=== PATIENT | male | born 1940 | race Caucasian/White ===

== ENCOUNTER → 2020-03-29 | Outpatient (CLI) | payer MEDICAID, MEDICARE ==
[~2020-03-29] MED LIST: ACCU1TAB2; ALBU83IN NEB; AMIT25TA2; AMLO1TAB25 PO; AMOX875T2 PO; ASPI81TA63; ATRO1SOL13; ATROVENT0.02%; BREO1INH3 INH; CADUET; CALC600T10; CALCTAB22; COLA100C2; D31000TA2 PO; DARV100T; DEPA500T; DOCU100C16 PO; DOXY100C PO; ELIQ5TAB PO; ESCI10TA2 PO; FISH OIL ORAL; FLOM0.4C39 PO; GABA600T3; GLIP5TAB20 PO; GLUC500T; HYDR50TA7; JANU50TA4 PO; LISI-538 PO; LISI10TA4 PO; LOPR50TA; LORA-674 PO; MOTR200T4; NEUR600T; PREV30TA; QUET1TAB7 PO; ROSI2TA; ROSU20TA5 PO; SKEL800T5; SUCR1TAB56; TRAM50TA2; VICO5TAB; ZETI10TA
--- NOTE | 2020-03-29 23:12 | REP ---
RENAL ULTRASOUND: REASON: Urinary retention. There are no priors for comparison. FINDINGS: Multiple ultrasonographic images of the right kidney show the right kidney to measure 10.9 x 5 x 5.8 cm with an RI of 0.61. The renal cortical echotexture is unremarkable. There are no masses. There is good corticomedullary differentiation. There is no hydronephrosis. There are no perinephric fluid collections. Multiple ultrasonographic images of the left kidney show the left kidney to measure 11.5 x 4.2 x 6.1 cm. The left renal RI was not obtained. The renal cortical echotexture is unremarkable. There are no masses. There is good corticomedullary differentiation. There is no hydronephrosis. There are no perinephric fluid collections. Images of the urinary bladder obtained solely for the purpose of assessing for uro-jet phenomena, which was not seen at either the right or left ureterovesical junction. IMPRESSION: Unremarkable renal ultrasonography.
== END ==
LOC: M PLAIMG 11:10
PROVIDERS: ATTEND Student in an Organized Health Care Education/Training Program
DX: R33.9 Retention of urine, unspecified (principal)

== ENCOUNTER → 2020-05-03 | Emergency (ER) | payer MEDICARE ==
[~2020-05-03] MED LIST changes: +APIXABAN 5 MG TAB (ELIQUIS) ONE; +GI COCKTAIL 50ML BTL(HYOSCYAMINE/MAALOX/LIDOCAINE VISCOUS)(1:3:1) ONE; +ISOVUE-370 76% 100ML VIAL ONE
--- NOTE | 2020-06-01 11:49 | ECGEPIP ---
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
[2020-06-09 11:15] LABS: BASO % 0.3 % (0.0-1.0); EOS # 0.3 10^3/uL (0.0-0.5); EOS % 4.6 % (0.0-3.0); HEMATOCRIT 38.7 % (42.0-52.0); HEMOGLOBIN 12.7 g/dl (13.5-17.5); LYMPH # 1.4 10^3/uL (1.5-5.0); LYMPH % 19.1 % (24.0-44.0); MEAN CORPUSCULAR HEMOGLOBIN 31.4 pg (27.0-33.0); MEAN CORPUSCULAR HGB CONC 32.8 g/dl (32.0-36.5); MEAN CORPUSCULAR VOLUME 95.8 fl (80.0-96.0); MONO # 0.8 10^3/uL (0.0-0.8); MONO % 10.8 % (0.0-5.0); NEUTROPHILS # 4.8 10^3/uL (1.5-8.5); NEUTROPHILS % 64.8 % (36.0-66.0); PLATELET COUNT, AUTOMATED 204 10^3/uL (150-450); RED BLOOD COUNT 4.04 10^6/uL (4.30-6.10); WHITE BLOOD COUNT 7.4 10^3/uL (4.0-10.0)
[2020-06-09 11:28] LABS: INR 1.01; PARTIAL THROMBOPLASTIN TIME 29.4 SECONDS (24.2-38.5); PROTHROMBIN TIME 13.5 SECONDS (12.5-14.3)
[2020-06-10 09:23] LABS: BLOOD UREA NITROGEN 27 MG/DL (7-18); CALCIUM LEVEL 8.3 MG/DL (8.8-10.2); CARBON DIOXIDE LEVEL 27 MEQ/L (21-32); CHLORIDE LEVEL 107 MEQ/L (98-107); CK-MB VALUE MASS 1.2 NG/ML (<3.6); CPK CREATINE PHOSPHOKINASE 50 U/L (39-308); CREATININE FOR GFR 1.34 MG/DL (0.70-1.30); GLOMERULAR FILTRATION RATE 54.5 (>35); GLUCOSE, FASTING 204 MG/DL (70-100); NT-PRO BNP 318 PG/ML (<450); POTASSIUM SERUM 4.5 MEQ/L (3.5-5.1); SODIUM LEVEL 138 MEQ/L (136-145); TROPONIN I < 0.02 NG/ML (< 0.10)
== END | disposition home or self-care (01) ==
LOC: M ED 20:28
DX: I82.432 Acute embolism and thrombosis of left popliteal vein (principal); I51.7 Cardiomegaly; I31.3 Pericardial effusion (noninflammatory); I28.8 Other diseases of pulmonary vessels; R94.31 Abnormal electrocardiogram [ECG] [EKG]; I25.10 Atherosclerotic heart disease of native coronary artery without angina pectoris; E11.9 Type 2 diabetes mellitus without complications; I10 Essential (primary) hypertension; E78.5 Hyperlipidemia, unspecified; K21.9 Gastro-esophageal reflux disease without esophagitis; J44.9 Chronic obstructive pulmonary disease, unspecified; F03.90 Unspecified dementia, unspecified severity, without behavioral disturbance, psychotic disturbance, mood disturbance, and anxiety; Z87.891 Personal history of nicotine dependence; Z79.82 Long term (current) use of aspirin; Z79.84 Long term (current) use of oral hypoglycemic drugs; Z79.899 Other long term (current) drug therapy; Z88.8 Allergy status to other drugs, medicaments and biological substances
CPT/HCPCS: 71046; 71275; 80048; 82550; 82553; 83880; 84484; 85025; 85610; 85730; 93005; 93970; 99285; Q9967

== ENCOUNTER 2020-06-09 17:41 | Inpatient (IN) | payer MEDICARE ==
[~2020-06-09] VITALS: Ht 172.7 cm; Wt 95.5 kg
[~2020-06-09 17:41] MED LIST changes: -ALBU83IN NEB; -AMLO1TAB25 PO; -AMOX875T2 PO; -APIXABAN 5 MG TAB (ELIQUIS) ONE; -BREO1INH3 INH; -D31000TA2 PO; -DOCU100C16 PO; -DOXY100C PO; -ELIQ5TAB PO; -ESCI10TA2 PO; -FLOM0.4C39 PO; -GI COCKTAIL 50ML BTL(HYOSCYAMINE/MAALOX/LIDOCAINE VISCOUS)(1:3:1) ONE; -GLIP5TAB20 PO; -ISOVUE-370 76% 100ML VIAL ONE; -JANU50TA4 PO; -LISI-538 PO; -LISI10TA4 PO; -LORA-674 PO; -QUET1TAB7 PO; -ROSU20TA5 PO
--- NOTE | 2020-06-09 18:24 | REPVR ---
PROCEDURE INFORMATION: Exam: CT Cervical Spine Without Contrast Exam date and time: 06/09/2020 6:07 PM Age: 79 years old Clinical indication: Injury or trauma; Fall; Initial encounter; Blunt trauma; Additional info: Head trauma arrives in collar TECHNIQUE: Imaging protocol: Computed tomography images of the cervical spine without contrast. Radiation optimization: All CT scans at this facility use at least one of these dose optimization techniques: automated exposure control; mA and/or kV adjustment per patient size (includes targeted exams where dose is matched to clinical indication); or iterative reconstruction. COMPARISON: No relevant prior studies available. FINDINGS: Vertebrae: No traumatic segmental malalignment of cervical spine or craniocervical junction. Vertebral body height is maintained at all levels. No acute fracture. No destructive or blastic cervical spine osseous lesion. Developmental non-fusion posterior neural arch of C1. Disc spaces: Intervertebral disc height is decreased at multiple levels, with typical degenerative pattern and associated endplate, articular pillar and uncovertebral spurs. Prevertebral Space: Prevertebral soft tissues demonstrate no asymmetry. Lungs: No concerning abnormality of the imaged lung apices. IMPRESSION: 1. No acute fracture or traumatic subluxation of the cervical spine. 2. Multilevel degenerative disc and articular pillar arthropathy. Electronically signed by: Osvaldo Villanueva On 06/09/2020 18:24:11 PM
--- NOTE | 2020-06-09 18:25 | REPVR ---
PROCEDURE INFORMATION: Exam: CT Head Without Contrast Exam date and time: 06/09/2020 6:07 PM Age: 79 years old Clinical indication: Injury or trauma; Fall; Initial encounter; Blunt trauma (contusions or hematomas); Consciousness not specified; Additional info: Head trauma on thinners TECHNIQUE: Imaging protocol: Computed tomography of the head without contrast. Radiation optimization: All CT scans at this facility use at least one of these dose optimization techniques: automated exposure control; mA and/or kV adjustment per patient size (includes targeted exams where dose is matched to clinical indication); or iterative reconstruction. COMPARISON: No relevant prior studies available. FINDINGS: Brain: Mild decreased attenuation in periventricular/centrum semiovale white matter. No intracranial mass, mass effect or midline shift. No acute intracranial hemorrhage. No focal effacement of cortical sulci to indicate acute cortical infarct. Ventricles: Ventricles, cisterns and sulci are symmetrically prominent. Bones/joints: No calvarial fracture or destructive process. Paranasal sinuses: Imaged paranasal sinuses are clear. Mastoid air cells: Mastoid air cells are normally aerated. Orbits: Imaged orbits are unremarkable. Soft tissues: Left posterior vertex extracranial scalp swelling. IMPRESSION: Left posterior vertex extracranial scalp swelling. No underlying acute intracranial abnormality. Electronically signed by: Osvaldo Villanueva On 06/09/2020 18:25:37 PM
[2020-06-09 18:31] LABS: BASO % 0.3 % (0.0-1.0); EOS % 0.3 % (0.0-3.0); HEMATOCRIT 43.7 % (42.0-52.0); HEMOGLOBIN 14.3 g/dl (13.5-17.5); LYMPH # 1.1 10^3/uL (1.5-5.0); LYMPH % 9.4 % (24.0-44.0); MEAN CORPUSCULAR HGB CONC 32.7 g/dl (32.0-36.5); MEAN CORPUSCULAR VOLUME 94.8 fl (80.0-96.0); MONO # 0.7 10^3/uL (0.0-0.8); MONO % 5.9 % (0.0-5.0); NEUTROPHILS # 9.9 10^3/uL (1.5-8.5); NEUTROPHILS % 82.8 % (36.0-66.0); PLATELET COUNT, AUTOMATED 262 10^3/uL (150-450); RED BLOOD COUNT 4.61 10^6/uL (4.30-6.10)
[2020-06-09] MEDS ORDERED: LABETALOL 100MG/20ML VIAL IV STA ×2 (18:32→19:58)
[2020-06-09 18:42] LABS: INR 1.02; PROTHROMBIN TIME 13.6 SECONDS (12.5-14.3)
[2020-06-09 18:43] LABS: PARTIAL THROMBOPLASTIN TIME 26.1 SECONDS (24.2-38.5)
[2020-06-09 19:15] LABS: ALBUMIN 3.8 GM/DL (3.2-5.2); ALT/SGPT 73 U/L (12-78); BILIRUBIN,DIRECT 0.1 MG/DL (0.0-0.2); BILIRUBIN,TOTAL 0.7 MG/DL (0.2-1.0); BLOOD UREA NITROGEN 32 MG/DL (7-18); CALCIUM LEVEL 9.3 MG/DL (8.8-10.2); CARBON DIOXIDE LEVEL 26 MEQ/L (21-32); CHLORIDE LEVEL 106 MEQ/L (98-107); CK-MB VALUE MASS 3.2 NG/ML (<3.6); CPK CREATINE PHOSPHOKINASE 158 U/L (39-308); CREATININE FOR GFR 1.29 MG/DL (0.70-1.30); FREE T4 0.98 NG/DL (0.76-1.46); GLOMERULAR FILTRATION RATE 56.9 (>35); GLUCOSE, FASTING 184 MG/DL (70-100); LIPASE 130 U/L (73-393); MB/CK RELATIVE INDEX 2.03 (< OR =4); POTASSIUM SERUM 5.1 MEQ/L (3.5-5.1); SODIUM LEVEL 139 MEQ/L (136-145); TROPONIN I < 0.02 NG/ML (< 0.10); VALPROIC ACID (DEPAKOTE) < 3.0 UG/ML (50.0-100.0)
--- NOTE | 2020-06-09 19:31 | REPVR ---
PROCEDURE INFORMATION: Exam: XR Chest, 2 Views Exam date and time: 06/09/2020 6:52 PM Age: 79 years old Clinical indication: Injury or trauma; Fall; Initial encounter; Abrasion TECHNIQUE: Imaging protocol: XR of the chest Views: 2 views. COMPARISON: CR Chest, 2 view PA, Lat 05/03/2020 9:26 PM FINDINGS: Lungs: Degree of inflation of the lungs is normal. No evidence of pulmonary edema. No focal airspace process. No concerning parenchymal lung mass. Pleural space: No pleural effusion or pneumothorax. Heart/Mediastinum: Cardiac silhouette appears normal. No mediastinal adenopathy or hilar mass. Bones/joints: Osseous structures show no acute or concerning abnormality. IMPRESSION: No active or focal cardiopulmonary process. Electronically signed by: Osvaldo Villanueva On 06/09/2020 19:31:30 PM
[2020-06-09] MEDS: HumaLOG INSULIN (NovoLOG) PER UNIT SC SCH (21:00)
[2020-06-09] MEDS ORDERED: BREO1INH3 INH (21:48)
[2020-06-09] MEDS ORDERED: AMOX875T2 PO (21:48)
[2020-06-09] MEDS ORDERED: DOXY100C PO (21:48)
[2020-06-09] MEDS ORDERED: ALBU83IN NEB (21:48)
[2020-06-09] MEDS ORDERED: ELIQ5TAB PO (21:48)
[2020-06-09] MEDS ORDERED: FLOM0.4C39 PO (21:48)
[2020-06-09] MEDS ORDERED: DOCU100C16 PO (21:48)
[2020-06-09] MEDS ORDERED: LORA-674 PO (21:58)
[2020-06-09] MEDS ORDERED: LISI10TA4 PO (21:58)
[2020-06-09] MEDS ORDERED: D31000TA2 PO (21:58)
[2020-06-09] MEDS ORDERED: JANU50TA4 PO (21:58)
[2020-06-09] MEDS ORDERED: GLIP5TAB20 PO (21:58)
[2020-06-09] MEDS ORDERED: ROSU20TA5 PO (21:58)
[2020-06-09] MEDS ORDERED: ESCI10TA2 PO (21:58)
[2020-06-09] MEDS ORDERED: DEXTROSE 50% 50 ML SYRINGE IV PRN (22:00)
[2020-06-09] MEDS ORDERED: ACETAMINOPHEN TAB 650MG DOSE (2X325MG) PO PRN (22:00)
[2020-06-09] MEDS ORDERED: GLUCAGON INJ 1MG VIAL SC PRN (22:00)
[2020-06-09] MEDS ORDERED: GLUCOSE 4GM CHEW TABLET PO PRN (22:00)
[2020-06-09] MEDS ORDERED: ALBUTEROL SULFATE 2.5 MG/0.5 ML INH NEB SOLN NEB PRN (22:15)
--- NOTE | 2020-06-09 22:58 | HPEPDOC ---
[facility] Medical History & Physical Date of Admission Jun 09, 2020 Date of Service: Jun 09, 2020 Attending Physician: MIKHAIL FLORENCE MD History and Physical CHIEF COMPLAINT: fall HISTORY OF PRESENT ILLNESS: Patient is an 79 year old male who presented following a fall at 1700 this evening. All information obtained from patient's as patient has dementia. Per his , who is also not the best historian, they were walking after dinner and he seemed to lose his balance and stumble backwards, falling, and hitting his head. No loss of consciousness. She called EMS due to difficulties getting him up. While in the ED his work-up was unremarkable except that his blood pressure remained elevated despite receiving 40 mg IV labetalol. His states this is his 3rd fall in the past month despite working with home PT. She states he does not complain to her of any new symptoms either before the fall, but after complained of some shoulder discomfort. On direct questioning he does not complain of any symptoms at this time, but cannot elaborate on direct questioning. He is able to follow commands. 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 BPH COPD Hx of pericardial effusion T2DM PAST SURGICAL HISTORY: cholecystectomy umbilical hernia repair inguinal hernia repair leg cyst removal Cataract surgery with residual complication, pupillary constriction SOCIAL HISTORY: Lives with his who is his primary aged or disabled care worker (HCP, Martin). Prior 30 pack year history, no EtoH or illicit drug use. FAMILY HISTORY: Father: from CHF apparently Mother: from a heart attack, is unsure. ALLERGIES: Please see below. REVIEW OF SYSTEMS: Unobtainable secondary to patient's mental status. HOME MEDICATIONS: Please see below. PHYSICAL EXAMINATION: VITAL SIGNS: See below GENERAL: Well appearing male sitting upright in bed in no acute distress, mouth breathing. HEENT: NC, AT, EOMI with difficulty tracking close up, Left pupil is pinpoint and non-responsive to light, R-pupil is responsive. no scleral icterus, moist mucous membranes, no pharyngeal erythema. NECK: No cervical or supraclavicular lymphadenopathy. No JVD. CARDIOVASCULAR: RRR, normal S1 and S2. No murmurs, gallops, rubs. LUNGS: CTAB with full breath sounds, no wheezes, crackles, or rhonchi. ABDOMEN: Soft, non-tender, Mildly distended, bowel sounds present. No hepatosplenomegaly. No masses or eccymosis. No CVA tenderness. EXTREMITIES: Non pitting edema below the knee bilaterally. No foot wounds. SKIN: No rashes or skin changes. NEUROLOGICAL: CN III-XII intact, Unable to assess CN II in left eye. A&Ox1, but orientable, continues to repeat question of whether or not he is going home. Strength +5/5 in bilateral UE and LE. Sensation intact in bilateral UE/LE. Patellar and bicep DTR's +2/4 bilaterally. [place]omberg normal. PSYCHIATRIC: Normal mood and affect. LABORATORY DATA: See below. IMAGIN06/09/2020 Pelvis AP only: No acute findings. 06/09/2020 Hip, Ap,Lat RIGHT: No acute findings 06/09/2020 R-femur XR: The visualized mid and distal femur is unremarkable. 06/09/2020 Non-contrast Head CT: No acute hemorrhage or edema. Chronic changes. MICROBIOLOGY: Please see below. Assessment/Plan: #. Hypertensive Urgency - states he was on blood pressure patients a long time ago but these have since been discontinued, only on lisinopril 10 mg at home, she does not believe it is from an adverse reaction, he is s/p 40 mg IV labetalol down in the ED. -BP in the ED ranged in the 240s, will only attempt to lower by 25% tonight and will hold meds for SBP<175. -Amlodipine daily to be given now, hydralazine 5mg iv q6hp for SBP>175. #. Recurrent falls -Head CT/C-spine negative -Bilateral shoulder XR pending. -PT/OT ordered #. Hx of dementia -May require a sitter at night, we will see how he does without his present #. Hx of LLE DVT -Continue home Eliquis #. S/p pneumonia -CXR negative, will have patient finish home prescription of Augmentin and Doxycyline. #. CAD -Continue rosuvastatin #. T2DM -Sliding scale insulin -Consistent carb diet #. BPH -Continue Flomax #. Depression -Continue Lexapro #. COPD -Continue albuterol nebs, -Home ICS/LABA converted to Advair for inpatient DVT prophylaxis: Eliquis, teds, seqs CODE STATUS: FULL CODE Vital Signs Vital Signs Date Time Temp Pulse Resp B/P (MAP) Pulse Ox O2 Delivery O2 Flow Rate FiO2 06/09/20 22:01 67 209/95 (133) 98 06/09/20 18:26 98.4 26 Room Air Laboratory Data Labs 24H Laboratory Tests 2 06/09/20 18:20: Immature Granulocyte % (Auto) 1.3, Neutrophils (%) (Auto) 82.8H, Lymphocytes (%) (Auto) 9.4L, Monocytes (%) (Auto) 5.9H, Eosinophils (%) (Auto) 0.3, Basophils (%) (Auto) 0.3, Neutrophils # (Auto) 9.9H, Lymphocytes # (Auto) 1.1L, Monocytes # (Auto) 0.7, Eosinophils # (Auto) 0.0, Basophils # (Auto) 0.0, Nucleated Red Blood Cells % (auto) 0.0, Prothrombin Time 13.6, Prothromb Time International Ratio 1.02, Activated Partial Thromboplast Time 26.1, Anion Gap 7L, Glomerular Filtration Rate 56.9, Calcium Level 9.3, Total Bilirubin 0.7, Direct Bilirubin 0.1, Aspartate Amino Transf (AST/SGOT) 37, Alanine Aminotransferase (ALT/SGPT) 73, Alkaline Phosphatase 83, Total Creatine Kinase 158, Creatine Kinase MB 3.2, Creatine Kinase MB Relative Index 2.03, Troponin I < 0.02, Total Protein 7.0, Albumin 3.8, Albumin/Globulin Ratio 1.2, Lipase 130, Thyroid Stimulating Hormone (TSH) 1.140, Free Thyroxine 0.98, Valproic Acid (Depakene) Level < 3.0L CBC/BMP Laboratory Tests 06/09/20 18:20 Home Medications Scheduled Amoxicillin/Potassium Clav (Amox-Clav 875-125 mg Tablet) 1 Each Tablet, 1 TAB PO BID Apixaban (Eliquis) 5 Mg Tablet, 5 MG PO BID Cholecalciferol (Vitamin D3) (Vitamin D3) 1,000 Unit Tablet, 2,000 UNITS PO DAILY Docusate Sodium (Docusate Sodium) 100 Mg Capsule, 200 MG PO QHS Doxycycline Hyclate (Doxycycline Hyclate) 100 Mg Capsule, 100 MG PO BID Escitalopram Oxalate (Escitalopram Oxalate) 10 Mg Tablet, 10 MG PO QHS Fluticasone/Vilanterol (Breo Ellipta 200-25 Mcg INH) 1 Each Blst.w.dev, 1 PUFF INH DAILY Glipizide (Glipizide ER) 5 Mg Tab.er.24, 5 MG PO DAILY Lisinopril (Lisinopril) 10 Mg Tablet, 10 MG PO DAILY Loratadine (Loratadine) 10 Mg Tablet, 10 MG PO DAILY Rosuvastatin Calcium (Rosuvastatin Calcium) 20 Mg Tablet, 20 MG PO QHS Sitagliptin Phos/Metformin HCl (Janumet 50-500 mg Tablet) 1 Each Tablet, 1 TAB PO BID Tamsulosin HCl (Flomax) 0.4 Mg Capsule, 0.4 MG PO QHS Scheduled PRN Albuterol Sulf (Albuterol Sulfate) 2.5 Mg/3 Ml Vial.neb, 1 VIAL NEB Q4HP PRN for wheezing Allergies Coded Allergies: buprenorphine (Verified Allergy, Severe, 06/09/20) GME ATTESTATION GME ATTESTATION My faculty preceptor for this patient encounter was physically present during the encounter and was fully available. All aspects of the patient interview, examination, medical decision making process, and medical care plan development were reviewed and approved by the faculty preceptor. The faculty preceptor is aw are and concurs with the plan as stated in the body of this note and will attest to such by his/her cosignature. ATTENDING NOTE I agree with above findings, assessment and plan as detailed by Dr. Adams. Mr. Philippe is an 79yo gentleman with dementia, CAD, HTN, COPD, DM who presented after what appears to be a mechanical fall and found to be in hypertensive crisis and thankfully did not sustain head or neck injuries beyond an occipital scalp hematoma, with pending dedicated shoulder XR, who is now admitted for hypertensive urgency and PT/OT evaluation for safe discharge planning. SUSANNE ADAMS DO Jun 09, 2020 22:58 MIKHAIL FLORENCE MD Jun 10, 2020 03:15
[2020-06-09] MEDS: hydrALAZINE 20MG/ML 1ML VIAL (J0360 PER 20MG) IV PRN (23:33)
[2020-06-09] MEDS: amLODIPine 5 MG TAB PO SCH (23:34)
[2020-06-09] MEDS: APIXABAN 5 MG TAB (ELIQUIS) PO SCH (23:34)
[2020-06-09 23:35] VITALS: BP 187/86
[2020-06-09] MEDS: AUGMENTIN 875 MG TAB PO SCH (23:42)
[2020-06-09] MEDS: DOXYCYCLINE HYCLATE 100MG TABLET PO SCH (23:43)
[2020-06-10] VITALS (29 sets, daily range): BP systolic 99–207; BP diastolic 56–132; PULSE 67
--- NOTE | 2020-06-10 02:06 | REPVR ---
PROCEDURE INFORMATION: Exam: XR Right Shoulder Exam date and time: 06/10/2020 2:01 AM Age: 79 years old Clinical indication: Other: Shoulder pain S/P backwards fall TECHNIQUE: Imaging protocol: XR Right shoulder. Views: 2 or more views. COMPARISON: No relevant prior studies available. FINDINGS: Bones/joints: Bony mineralization is normal for age. No evidence of acute fracture. No concerning osseous lesion. AC joint is aligned normally. Glenohumeral joint is aligned normally. Visualized upper ribs are unremarkable. Soft tissues: No abnormal soft tissue process. No concerning soft tissue calcifications. IMPRESSION: Unremarkable right shoulder radiographs. PROCEDURE INFORMATION: Exam: XR Left Shoulder Exam date and time: 06/10/2020 2:01 AM Age: 79 years old Clinical indication: Other: Shoulder pain S/P backwards fall TECHNIQUE: Imaging protocol: XR Left shoulder. Views: 2 or more views. COMPARISON: No relevant prior studies available. FINDINGS: Bones/joints: Bony mineralization is normal for age. No evidence of acute fracture. No concerning osseous lesion. AC joint is aligned normally. Glenohumeral joint is aligned normally. Visualized upper ribs are unremarkable. Soft tissues: No abnormal soft tissue process. No concerning soft tissue calcifications. IMPRESSION: Unremarkable left shoulder radiographs. Electronically signed by: Osvaldo Villanueva On 06/10/2020 02:05:49 AM
[2020-06-10] MEDS ORDERED: hydrALAZINE 20MG/ML 1ML VIAL (J0360 PER 20MG) IV ONE ×2 (03:15→09:00)
[2020-06-10 04:49] LABS: HEMATOCRIT 41.2 % (42.0-52.0); HEMOGLOBIN 13.5 g/dl (13.5-17.5); MEAN CORPUSCULAR HGB CONC 32.8 g/dl (32.0-36.5); MEAN CORPUSCULAR VOLUME 94.5 fl (80.0-96.0); PLATELET COUNT, AUTOMATED 256 10^3/uL (150-450); RED BLOOD COUNT 4.36 10^6/uL (4.30-6.10)
[2020-06-10 04:56] LABS: BLOOD UREA NITROGEN 28 MG/DL (7-18); CALCIUM LEVEL 8.8 MG/DL (8.8-10.2); CARBON DIOXIDE LEVEL 25 MEQ/L (21-32); CHLORIDE LEVEL 107 MEQ/L (98-107); CREATININE FOR GFR 1.12 MG/DL (0.70-1.30); GLOMERULAR FILTRATION RATE > 60.0 (>35); GLUCOSE, FASTING 143 MG/DL (70-100); POTASSIUM SERUM 4.2 MEQ/L (3.5-5.1); SODIUM LEVEL 140 MEQ/L (136-145)
[2020-06-10] MEDS: hydrALAZINE 20MG/ML 1ML VIAL (J0360 PER 20MG) IV PRN (06:25)
[2020-06-10] MEDS: HumaLOG INSULIN (NovoLOG) PER UNIT SC SCH ×4 (07:51→20:49)
--- NOTE | 2020-06-10 07:53 | IPNPDOC ---
Date Seen The patient was seen on 06/10/20. Progress Note SUBJECTIVE: patient was seen and examined at bedside. He has advanced dementia, but is alert siting upright in bed, verbal but not answering appropriately to questions. BP elevated this morning, 189/90. OBJECTIVE PHYSICAL EXAMINATION: VITAL SIGNS: Please see below. General: NAD, comfortable HEENT: PERRLA, EOMI, sclerae clear. L pupil pinpoint (per , present for several years) Neck: supple, normal ROM, no JVD Resp: lungs CTAB, no wheeze, no rales, no crackles CVS: RRR, normal S1, S2, no murmurs Abdo: soft, no masses, no hepatosplenomegaly, BS+, no rebound tenderness Extremities: no edema, pulses 2+ MSK: no joint deformities, normal ROM Neuro: no focal neuro deficits, moving all 4 extremities Psych: calm, cooperative, AAO x 3 LABORATORY DATA, IMAGING STUDIES, MICROBIOLOGY: Please see below. DVT prophylaxis ordered?: patient is on eliquids, TEDs, SCDs ASSESSMENT AND PLAN: Patient is an 79 year old male who presented following a fall at 1700 this evening. All information obtained from patient's as patient has dementia. While in the ED his work-up was unremarkable except that his blood pressure remained elevated despite receiving 40 mg IV labetalol. His states this is his 3rd fall in the past month despite working with home PT. She states he does not complain to her of any new symptoms either before the fall, but after complained of some shoulder discomfort. On direct questioning he does not complain of any symptoms at this time, but cannot elaborate on direct questioning. He is able to follow commands. #. Hypertensive Urgency - states he was on blood pressure patients a long time ago but these have since been discontinued, only on lisinopril 10 mg at home, she does not believe it is from an adverse reaction, he is s/p 40 mg IV labetalol down in the ED. -BP in the ED ranged in the 240s, will only attempt to lower by 25% tonight and will hold meds for SBP<175. -Amlodipine daily to be given now, hydralazine 5mg iv q6hp for SBP>175. - BP improved to 164/80 - increased lisinopril to 20 mg daily, add amlodipine 5 #. Recurrent falls -Head CT/C-spine negative -L shoulder xray normal -PT/OT ordered #Dysphagia - AUTOMOBILE BODY CUSTOMIZER eval #. Hx of dementia -May require a sitter at night, we will see how he does without his present #. Hx of LLE DVT -Continue home Eliquis #. S/p pneumonia -CXR negative, will have patient finish home prescription of Augmentin and Doxycyline. #. CAD -Continue rosuvastatin #. T2DM -Sliding scale insulin -Consistent carb diet #. BPH -Continue Flomax #. Depression -Continue Lexapro #. COPD -Continue albuterol nebs, -Home ICS/LABA converted to Advair for inpatient DVT prophylaxis: denice Brunner, ondina Dispo: PT/OT eval - will benefit from rehab at this time. CODE STATUS: FULL CODE VS, I&O, 24H, Fishbone Vital Signs/I&O Vital Signs Date Time Temp Pulse Resp B/P (MAP) Pulse Ox O2 Delivery O2 Flow Rate FiO2 06/10/20 07:01 67 20 205/88 (127) 94 Room Air 06/10/20 04:00 98.2 I&O- Last 24 Hours up to 6 AM 06/10/20 06:00 Intake Total 0 ml Output Total 650 ml Balance -650 ml Laboratory Data 24H LABS Laboratory Tests 2 06/09/20 18:20: Immature Granulocyte % (Auto) 1.3, Neutrophils (%) (Auto) 82.8H, Lymphocytes (%) (Auto) 9.4L, Monocytes (%) (Auto) 5.9H, Eosinophils (%) (Auto) 0.3, Basophils (%) (Auto) 0.3, Neutrophils # (Auto) 9.9H, Lymphocytes # (Auto) 1.1L, Monocytes # (Auto) 0.7, Eosinophils # (Auto) 0.0, Basophils # (Auto) 0.0, Nucleated Red Blood Cells % (auto) 0.0, Prothrombin Time 13.6, Prothromb Time International Ratio 1.02, Activated Partial Thromboplast Time 26.1, Anion Gap 7L, Glomerular Filtration Rate 56.9, Calcium Level 9.3, Total Bilirubin 0.7, Direct Bilirubin 0.1, Aspartate Amino Transf (AST/SGOT) 37, Alanine Aminotransferase (ALT/SGPT) 73, Alkaline Phosphatase 83, Total Creatine Kinase 158, Creatine Kinase MB 3.2, Creatine Kinase MB Relative Index 2.03, Troponin I < 0.02, Total Protein 7.0, Albumin 3.8, Albumin/Globulin Ratio 1.2, Lipase 130, Thyroid Stimulating Hormone (TSH) 1.140, Free Thyroxine 0.98, Valproic Acid (Depakene) Level < 3.0L 06/09/20 23:39: Bedside Glucose (Misc Panel) 194H 06/10/20 04:09: Nucleated Red Blood Cells % (auto) 0.0, Anion Gap 8, Glomerular Filtration Rate > 60.0, Calcium Level 8.8 CBC/BMP Laboratory Tests 06/09/20 18:20 06/10/20 04:09 CHEIKH LENNON MD Jun 10, 2020 07:53
[2020-06-10] MEDS: amLODIPine 5 MG TAB PO SCH (07:54)
[2020-06-10] MEDS: ADVAIR HFA 230/21MCG INHALER INH SCH ×2 (08:04→20:12)
[2020-06-10] MEDS ORDERED: lisinopriL 20 MG TAB PO SCH (09:00)
[2020-06-10] MEDS ORDERED: lisinopriL 10 MG TAB PO SCH (09:00)
[2020-06-10] MEDS: lisinopriL 10 MG TAB PO ONE ×2 (09:19→11:12)
[2020-06-10] MEDS: APIXABAN 5 MG TAB (ELIQUIS) PO SCH ×2 (09:41→20:49)
[2020-06-10] MEDS: DOXYCYCLINE HYCLATE 100MG TABLET PO SCH ×2 (09:42→20:49)
[2020-06-10] MEDS: AUGMENTIN 875 MG TAB PO SCH ×2 (09:42→20:49)
[2020-06-10 10:10] LABS: APPEARANCE, URINE CLEAR (CLEAR); BACTERIA, URINE AUTO NEGATIVE (NEGATIVE); BILIRUBIN, URINE AUTO NEGATIVE (NEGATIVE); BLOOD, URINE BLOOD NEGATIVE (NEGATIVE); COLOR, URINE YELLOW (YELLOW); GLUCOSE, URINE (UA) AUTO 1+ mg/dL (NEGATIVE); KETONE, URINE AUTO NEGATIVE (NEGATIVE); LEUKOCYTE ESTERASE, URINE AUTO NEGATIVE (NEGATIVE); NITRITE, URINE AUTO NEGATIVE (NEGATIVE); PROTEIN, URINE AUTO 1+ mg/dL (NEGATIVE); RBC, URINE AUTO 1 /HPF (0-3); SPECIFIC GRAVITY URINE AUTO 1.015 (1.002-1.035); SQUAMOUS EPITHELIAL CELL UR AU 0 /HPF (0-6); UROBILINOGEN, URINE AUTO 0.2 mg/dL (0.0-2.0); WBC, URINE AUTO 0 /HPF (0-3)
--- NOTE | 2020-06-10 12:20 | ECGEPIP ---
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
[2020-06-10] MEDS ORDERED: SLF 3 ML SYR IV PRN (15:45)
--- NOTE | 2020-06-10 16:17 | ECGEPIP ---
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
[2020-06-10] MEDS: PANTOPRAZOLE 40MG TAB (PROTONIX) PO SCH (17:44)
[2020-06-10] MEDS ORDERED: QUEtiapine FUMARATE 12.5 MG HALF-TAB PO PRN (18:15)
[2020-06-10] MEDS: ESCITALOPRAM OXALATE 10 MG TAB (LEXAPRO) PO SCH (20:49)
[2020-06-10] MEDS: TAMSULOSIN 0.4 MG CAP PO SCH (20:49)
[2020-06-10] MEDS: DOCUSATE SODIUM 100 MG CAP PO SCH (20:49)
[2020-06-10] MEDS: ROSUVASTATIN 10 MG TAB (CRESTOR) PO SCH (20:49)
[2020-06-10] MEDS: SLF 3 ML SYR IV SCH (20:50)
[2020-06-11] VITALS (8 sets, daily range): BP systolic 138–190; BP diastolic 70–90
[2020-06-11] MEDS: hydrALAZINE 20MG/ML 1ML VIAL (J0360 PER 20MG) IV PRN (04:48)
[2020-06-11] MEDS: SLF 3 ML SYR IV SCH ×3 (04:49→20:06)
[2020-06-11 06:24] LABS: HEMATOCRIT 41.2 % (42.0-52.0); HEMOGLOBIN 13.7 g/dl (13.5-17.5); MEAN CORPUSCULAR HEMOGLOBIN 30.8 pg (27.0-33.0); MEAN CORPUSCULAR HGB CONC 33.3 g/dl (32.0-36.5); MEAN CORPUSCULAR VOLUME 92.6 fl (80.0-96.0); PLATELET COUNT, AUTOMATED 258 10^3/uL (150-450); RED BLOOD COUNT 4.45 10^6/uL (4.30-6.10); WHITE BLOOD COUNT 11.1 10^3/uL (4.0-10.0)
[2020-06-11 06:39] LABS: CALCIUM LEVEL 8.9 MG/DL (8.8-10.2); CREATININE FOR GFR 1.3 MG/DL (0.70-1.30); GLOMERULAR FILTRATION RATE 56.4 (>35); POTASSIUM SERUM 4.5 MEQ/L (3.5-5.1)
[2020-06-11] MEDS: ADVAIR HFA 230/21MCG INHALER INH SCH ×2 (07:14→20:06)
[2020-06-11] MEDS: DOXYCYCLINE HYCLATE 100MG TABLET PO SCH (08:33)
[2020-06-11] MEDS: PANTOPRAZOLE 40MG TAB (PROTONIX) PO SCH (08:34)
[2020-06-11] MEDS: amLODIPine 5 MG TAB PO SCH (08:34)
[2020-06-11] MEDS: AUGMENTIN 875 MG TAB PO SCH (08:34)
[2020-06-11] MEDS: lisinopriL 20 MG TAB PO SCH (08:34)
[2020-06-11] MEDS: APIXABAN 5 MG TAB (ELIQUIS) PO SCH ×2 (08:34→20:05)
[2020-06-11] MEDS: HumaLOG INSULIN (NovoLOG) PER UNIT SC SCH ×4 (08:35→20:05)
--- NOTE | 2020-06-11 13:01 | IPNPDOC ---
Date Seen The patient was seen on 06/11/20. Progress Note SUBJECTIVE: patient was seen and examined at bedside. Advanced dementia, opens eyes, speaking but does not answer questions appropriately most of time. Often becomes confused, but can be redirected. OBJECTIVE PHYSICAL EXAMINATION: VITAL SIGNS: Please see below. General: NAD, comfortable HEENT: PERRLA, EOMI, sclerae clear. L pupil pinpoint (per , present for several years) Neck: supple, normal ROM, no JVD Resp: lungs CTAB, no wheeze, no rales, no crackles CVS: RRR, normal S1, S2, no murmurs Abdo: soft, no masses, no hepatosplenomegaly, BS+, no rebound tenderness Extremities: no edema, pulses 2+ MSK: no joint deformities, normal ROM Neuro: no focal neuro deficits, moving all 4 extremities Psych: calm, cooperative, AAO x 3 LABORATORY DATA, IMAGING STUDIES, MICROBIOLOGY: Please see below. DVT prophylaxis ordered?: patient is on eliquids, TEDs, SCDs ASSESSMENT AND PLAN: Patient is an 79 year old male who presented following a fall at 1700 this evening. All information obtained from patient's as patient has dementia. While in the ED his work-up was unremarkable except that his blood pressure remained elevated despite receiving 40 mg IV labetalol. His states this is his 3rd fall in the past month despite working with home PT. She states he does not complain to her of any new symptoms either before the fall, but after complained of some shoulder discomfort. On direct questioning he does not complain of any symptoms at this time, but cannot elaborate on direct questioning. He is able to follow commands. #. Hypertensive Urgency - controlled now with lisinopril 20 mg PO daily - amlodipine 5 mg daily #. Recurrent falls -Head CT/C-spine negative -L shoulder xray normal -PT/OT ordered #Dysphagia - UROLOGIST MD eval #. Hx of dementia -May require a sitter at night, we will see how he does without his present #. Hx of LLE DVT -Continue home Eliquis #. S/p pneumonia -CXR negative, will have patient finish home prescription of Augmentin and Doxycyline. - mild WBC elevation #. CAD -Continue rosuvastatin #. T2DM -Sliding scale insulin -Consistent carb diet #. BPH -Continue Flomax #. Depression -Continue Lexapro #. COPD -Continue albuterol nebs, -Home ICS/LABA converted to Advair for inpatient DVT prophylaxis: denice Brunner seqs Dispo: PT/OT eval - will benefit from rehab at this time. CODE STATUS: FULL CODE VS, I&O, 24H, Fishbone Vital Signs/I&O Vital Signs Date Time Temp Pulse Resp B/P (MAP) Pulse Ox O2 Delivery O2 Flow Rate FiO2 06/11/20 12:00 97.4 72 18 138/78 (98) 95 Room Air I&O- Last 24 Hours up to 6 AM 06/11/20 05:59 Intake Total 840 ml Output Total 1725 ml Balance -885 ml Laboratory Data 24H LABS Laboratory Tests 2 06/10/20 14:54: Troponin I < 0.02 06/10/20 16:49: Bedside Glucose (Misc Panel) 125H 06/10/20 20:42: Bedside Glucose (Misc Panel) 214H 06/11/20 05:26: Nucleated Red Blood Cells % (auto) 0.0, Anion Gap 6L, Glomerular Filtration Rate 56.4, Calcium Level 8.9 06/11/20 11:40: Bedside Glucose (Misc Panel) 286H CBC/BMP Laboratory Tests 06/11/20 05:26 Microbiology Microbiology 06/10/20 Urine Culture - Final, Complete CHEIKH LENNON MD Jun 11, 2020 13:00
[2020-06-11] MEDS: ROSUVASTATIN 10 MG TAB (CRESTOR) PO SCH (20:04)
[2020-06-11] MEDS: ESCITALOPRAM OXALATE 10 MG TAB (LEXAPRO) PO SCH (20:04)
[2020-06-11] MEDS: DOCUSATE SODIUM 100 MG CAP PO SCH (20:05)
[2020-06-11] MEDS: TAMSULOSIN 0.4 MG CAP PO SCH (20:05)
[2020-06-12] VITALS (7 sets, daily range): BP systolic 150–186; BP diastolic 67–86
[2020-06-12 04:55] LABS: HEMATOCRIT 40.7 % (42.0-52.0); HEMOGLOBIN 13.5 g/dl (13.5-17.5); MEAN CORPUSCULAR HEMOGLOBIN 31.3 pg (27.0-33.0); MEAN CORPUSCULAR HGB CONC 33.2 g/dl (32.0-36.5); MEAN CORPUSCULAR VOLUME 94.2 fl (80.0-96.0); PLATELET COUNT, AUTOMATED 235 10^3/uL (150-450); RED BLOOD COUNT 4.32 10^6/uL (4.30-6.10); WHITE BLOOD COUNT 9.6 10^3/uL (4.0-10.0)
[2020-06-12 05:13] LABS: CALCIUM LEVEL 8.3 MG/DL (8.8-10.2); CREATININE FOR GFR 1.32 MG/DL (0.70-1.30); GLOMERULAR FILTRATION RATE 55.4 (>35); POTASSIUM SERUM 4.5 MEQ/L (3.5-5.1)
[2020-06-12] MEDS: SLF 3 ML SYR IV SCH ×3 (06:51→21:39)
[2020-06-12] MEDS: ADVAIR HFA 230/21MCG INHALER INH SCH ×2 (07:09→20:20)
[2020-06-12] MEDS: lisinopriL 20 MG TAB PO SCH (08:38)
[2020-06-12] MEDS: amLODIPine 5 MG TAB PO SCH (08:39)
[2020-06-12] MEDS: PANTOPRAZOLE 40MG TAB (PROTONIX) PO SCH (08:39)
[2020-06-12] MEDS: APIXABAN 5 MG TAB (ELIQUIS) PO SCH ×2 (08:39→21:39)
[2020-06-12] MEDS: HumaLOG INSULIN (NovoLOG) PER UNIT SC SCH ×4 (08:40→21:00)
[2020-06-12] MEDS ORDERED: amLODIPine 5 MG TAB PO ONE (14:15)
[2020-06-12] MEDS: DOCUSATE SODIUM 100 MG CAP PO SCH (21:38)
[2020-06-12] MEDS: ROSUVASTATIN 10 MG TAB (CRESTOR) PO SCH (21:38)
[2020-06-12] MEDS: ESCITALOPRAM OXALATE 10 MG TAB (LEXAPRO) PO SCH (21:39)
[2020-06-12] MEDS: TAMSULOSIN 0.4 MG CAP PO SCH (21:39)
--- NOTE | 2020-06-12 21:52 | IPNPDOC ---
Date Seen The patient was seen on 06/12/20. Progress Note SUBJECTIVE: patient was seen and examined at bedside. Advanced dementia, opens eyes, speaking but does not answer questions appropriately most of time. Often becomes confused, but can be redirected. No acute events overnight. OBJECTIVE PHYSICAL EXAMINATION: VITAL SIGNS: Please see below. General: NAD, comfortable HEENT: PERRLA, EOMI, sclerae clear. L pupil pinpoint (per , present for sev eral years) Neck: supple, normal ROM, no JVD Resp: lungs CTAB, no wheeze, no rales, no crackles CVS: RRR, normal S1, S2, no murmurs Abdo: soft, no masses, no hepatosplenomegaly, BS+, no rebound tenderness Extremities: no edema, pulses 2+ MSK: no joint deformities, normal ROM Neuro: no focal neuro deficits, moving all 4 extremities Psych: calm, cooperative, AAO x 3 LABORATORY DATA, IMAGING STUDIES, MICROBIOLOGY: Please see below. DVT prophylaxis ordered?: patient is on eliquids, TEDs, SCDs ASSESSMENT AND PLAN: Patient is an 79 year old male who presented following a fall at 1700 this evening. All information obtained from patient's as patient has dementia. While in the ED his work-up was unremarkable except that his blood pressure remained elevated despite receiving 40 mg IV labetalol. His states this is his 3rd fall in the past month despite working with home PT. She states he does not complain to her of any new symptoms either before the fall, but after complained of some shoulder discomfort. On direct questioning he does not complain of any symptoms at this time, but cannot elaborate on direct questioning. He is able to follow commands. #. Hypertensive Urgency - controlled now with lisinopril 20 mg PO daily - increased amlodipine to 10 mg daily #. Recurrent falls -Head CT/C-spine negative -L shoulder xray normal -PT/OT ordered - initially recommending rehab. Re-eval however, possibility to be cleared for DC home with 24/ family support and home PT - to clarify with PT. 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 consult with family - rec puree solids and nectar thick liquids #. Hx of dementia -May require a sitter at night, we will see how he does without his present #. Hx of LLE DVT -Continue home Eliquis #. S/p pneumonia -CXR negative, will have patient finish home prescription of Augmentin and Doxycyline. - mild WBC elevation #. CAD -Continue rosuvastatin #. T2DM -Sliding scale insulin -Consistent carb diet #. BPH -Continue Flomax #. Depression -Continue Lexapro #. COPD -Continue albuterol nebs, -Home ICS/LABA converted to Advair for inpatient DVT prophylaxis: denice Brunner, ondina Dispo: PT/OT eval - will benefit from rehab at this time. CODE STATUS: FULL CODE VS, I&O, 24H, Fishbone Vital Signs/I&O Vital Signs Date Time Temp Pulse Resp B/P (MAP) Pulse Ox O2 Delivery O2 Flow Rate FiO2 06/12/20 20:00 98.5 80 16 186/80 (115) 90 Room Air I&O- Last 24 Hours up to 6 AM 06/12/20 06:00 Intake Total 1080 ml Output Total 500 ml Balance 580 ml Laboratory Data 24H LABS Laboratory Tests 2 06/12/20 04:35: Nucleated Red Blood Cells % (auto) 0.0, Anion Gap 7L, Glomerular Filtration Rate 55.4, Calcium Level 8.3L 06/12/20 07:20: Bedside Glucose (Misc Panel) 203H 06/12/20 12:05: Bedside Glucose (Misc Panel) 178H 06/12/20 16:41: Bedside Glucose (Misc Panel) 191H 06/12/20 21:21: Bedside Glucose (Misc Panel) 193H CBC/BMP Laboratory Tests 06/12/20 04:35 Microbiology Microbiology 06/10/20 Urine Culture - Final, Complete CHEIKH LENNON MD Jun 12, 2020 21:52
[2020-06-13] VITALS: BP 180/80
[2020-06-13 04:00] VITALS: BP 142/72
[2020-06-13 05:10] LABS: HEMATOCRIT 37.8 % (42.0-52.0); HEMOGLOBIN 12.4 g/dl (13.5-17.5); MEAN CORPUSCULAR HEMOGLOBIN 31.1 pg (27.0-33.0); MEAN CORPUSCULAR HGB CONC 32.8 g/dl (32.0-36.5); MEAN CORPUSCULAR VOLUME 94.7 fl (80.0-96.0); PLATELET COUNT, AUTOMATED 220 10^3/uL (150-450); RED BLOOD COUNT 3.99 10^6/uL (4.30-6.10); WHITE BLOOD COUNT 8.9 10^3/uL (4.0-10.0)
[2020-06-13 05:46] LABS: CALCIUM LEVEL 8.1 MG/DL (8.8-10.2); CREATININE FOR GFR 1.26 MG/DL (0.70-1.30); GLOMERULAR FILTRATION RATE 58.5 (>35); POTASSIUM SERUM 4.6 MEQ/L (3.5-5.1)
[2020-06-13] MEDS: SLF 3 ML SYR IV SCH (05:56)
[2020-06-13 08:00] VITALS: BP 169/71
[2020-06-13] MEDS: PANTOPRAZOLE 40MG TAB (PROTONIX) PO SCH (08:37)
[2020-06-13] MEDS: APIXABAN 5 MG TAB (ELIQUIS) PO SCH (08:37)
[2020-06-13] MEDS: HumaLOG INSULIN (NovoLOG) PER UNIT SC SCH ×2 (08:37→12:17)
[2020-06-13 08:38] VITALS: BP 169/71
[2020-06-13] MEDS: lisinopriL 20 MG TAB PO SCH (08:38)
[2020-06-13] MEDS ORDERED: amLODIPine 10 MG TAB PO SCH (09:00)
[2020-06-13] MEDS ORDERED: LISI-538 PO (09:59)
[2020-06-13] MEDS ORDERED: AMLO1TAB25 PO (09:59)
[2020-06-13] MEDS ORDERED: QUET1TAB7 PO (09:59)
[2020-06-13] MEDS: ADVAIR HFA 230/21MCG INHALER INH SCH (10:59)
[2020-06-13 12:00] VITALS: BP 144/69
--- NOTE | 2020-06-13 18:38 | DS.PDOC ---
Discharge Summary General Date of Admission Jun 09, 2020 at 21:30 Date of Discharge 06/13/20 Attending Physician: Zina Byrne MD Discharge Summary HISTORY OF PRESENT ILLNESS: Patient is an 79 year old male who presented following a fall at 1700 this evening. All information obtained from patient's as patient has dementia. Per his , who is also not the best historian, they were walking after dinner and he seemed to lose his balance and stumble backwards, falling, and hitting his head. No loss of consciousness. She called EMS due to difficulties getting him up. While in the ED his work-up was unremarkable except that his blood pressure remained elevated despite receiving 40 mg IV labetalol. His states this is his 3rd fall in the past month despite working with home PT. She states he does not complain to her of any new symptoms either before the fall, but after complained of some shoulder discomfort. On direct questioning he did not complain of any symptoms at this time, but cannot elaborate on direct questioning. He was able to follow commands. HOSPITAL COURSE: The patient's hypertensive urgency resolved with an increased dose of amlodipine daily, lisinopril daily. He had a CT of the head and CT C-spine which were negative, done for further evaluation into recent fall. Physical therapy was ordered and although initially recommending rehabilitation inpatient, reevaluation cleared him for home with [facility] family support and home physical therapy services. There was concern for dysphagia and swallowing evaluation confirmed mild oral pharyngeal phase dysphagia. Grade solids and nectar thick diet was suggested. He tolerated this fine this hospitalization. He required a sitter at night due to his advanced dementia but was redirectable most times. On 06/13/2020 the patient was discharged home with his with the home services mentioned above. He was pleasantly confused at his baseline on discharge and denied chest pain, shortness of breath, nausea, vomiting, fevers or chills. PAST MEDICAL HISTORY: CAD s/p stents x3 >10 years ago (follows with [facility] quality control head, next apptmt this Friday) Hx of LLE DVT possible watchmen device x3 years with recent removal? BPH COPD Hx of pericardial effusion T2DM PAST SURGICAL HISTORY: cholecystectomy umbilical hernia repair inguinal hernia repair leg cyst removal Cataract surgery with residual complication, pupillary constriction SOCIAL HISTORY: Lives with his who is his primary daytime caregiver (HCP, Martin). Prior 30 pack year history, no EtoH or illicit drug use. FAMILY HISTORY: Father: from CHF apparently Mother: from a heart attack, is unsure. ALLERGIES: Please see below. HOME MEDICATIONS: Please see below. PHYSICAL EXAMINATION: VITAL SIGNS: See below GENERAL: Well appearing male sitting upright in bedside chair, confused but believed to be at baseline HEENT: NC, AT, EOMI with difficulty tracking close up, Left pupil is pinpoint and non-responsive to light, R-pupil is responsive. no scleral icterus, moist mucous membranes, no pharyngeal erythema. NECK: No cervical or supraclavicular lymphadenopathy. No JVD. CARDIOVASCULAR: RRR, normal S1 and S2. No murmurs, gallops, rubs. LUNGS: CTAB with full breath sounds, no wheezes, crackles, or rhonchi. ABDOMEN: Soft, non-tender, Mildly distended, bowel sounds present. No hepatosplenomegaly. No masses or eccymosis. No CVA tenderness. EXTREMITIES: Non pitting edema below the knee bilaterally. No foot wounds. SKIN: No rashes or skin changes. NEUROLOGICAL: CN III-XII intact, Unable to assess CN II in left eye. A&Ox1. Strength +5/5 in bilateral UE and LE. Sensation intact in bilateral UE/LE. Patellar and bicep DTR's +2/4 bilaterally. Rhomberg normal. PSYCHIATRIC: Normal mood and affect. LABORATORY DATA: See below. IMAGIN06/09/2020 Pelvis AP only: No acute findings. 06/09/2020 Hip, Ap,Lat RIGHT: No acute findings 06/09/2020 R-femur XR: The visualized mid and distal femur is unremarkable. 06/09/2020 Non-contrast Head CT: No acute hemorrhage or edema. Chronic changes. ASSESSMENT/PLAN: #. Hypertensive Urgency - Resolved - C/w increased dose lisinopril, amlodipine (new med) - F/u with PCP, low salt diet #. 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 consult with family - C/w puree solids and nectar thick liquids #. Hx of dementia -Advancing -F/u with PCP #. Hx of LLE DVT -Continue home Eliquis #. S/p pneumonia -CXR negative, will have patient finish home prescription of Augmentin and Doxycyline. - mild WBC elevation #. CAD -Continue rosuvastatin #. T2DM -Consistent carb diet #. BPH -Continue Flomax #. Depression -Continue Lexapro #. COPD -C/w home meds. DISPOSITION: Discharged home today with home PT, home services and f/u with PCP within 1-2 weeks after discharge. TIME SPENT ON DISCHARGE: Greater than 30 minutes. Vital Signs/I&Os Vital Signs Date Time Temp Pulse Resp B/P (MAP) Pulse Ox O2 Delivery O2 Flow Rate FiO2 06/13/20 12:00 97.4 63 24 144/69 (94) 92 Room Air I&O- Last 24 Hours up to 6 AM 06/13/20 06:00 Intake Total 1080 ml Output Total 0 ml Balance 1080 ml Laboratory Data Labs 24H Laboratory Tests 2 06/12/20 21:21: Bedside Glucose (Misc Panel) 193H 06/13/20 04:53: Nucleated Red Blood Cells % (auto) 0.0, Anion Gap 4L, Glomerular Filtration Rate 58.5, Calcium Level 8.1L 06/13/20 11:50: Bedside Glucose (Misc Panel) 164H CBC/BMP Laboratory Tests 06/13/20 04:53 FSBS Laboratory Tests Test 06/12/20 21:21 06/13/20 11:50 Range/Units Bedside Glucose (Misc Panel) 193 164 83-110 MG/DL Microbiology Microbiology 06/10/20 Urine Culture - Final, Complete Discharge Medications Scheduled Amlodipine Besylate (Amlodipine Besylate) 10 Mg Tablet, 10 MG PO DAILY Apixaban (Eliquis) 5 Mg Tablet, 5 MG PO BID, (Reported) Cholecalciferol (Vitamin D3) (Vitamin D3) 1,000 Unit Tablet, 2,000 UNITS PO DAILY, (Reported) Docusate Sodium (Docusate Sodium) 100 Mg Capsule, 200 MG PO QHS, (Reported) Doxycycline Hyclate (Doxycycline Hyclate) 100 Mg Capsule, 100 MG PO BID, (Reported) Escitalopram Oxalate (Escitalopram Oxalate) 10 Mg Tablet, 10 MG PO QHS, (Reported) Fluticasone/Vilanterol (Breo Ellipta 200-25 Mcg INH) 1 Each Blst.w.dev, 1 PUFF INH DAILY, (Reported) Glipizide (Glipizide ER) 5 Mg Tab.er.24, 5 MG PO DAILY, (Reported) Lisinopril (Lisinopril) 20 Mg Tablet, 20 MG PO DAILY Loratadine (Loratadine) 10 Mg Tablet, 10 MG PO DAILY, (Reported) Rosuvastatin Calcium (Rosuvastatin Calcium) 20 Mg Tablet, 20 MG PO QHS, (Reported) Sitagliptin Phos/Metformin HCl (Janumet 50-500 mg Tablet) 1 Each Tablet, 1 TAB PO BID, (Reported) Tamsulosin HCl (Flomax) 0.4 Mg Capsule, 0.4 MG PO QHS, (Reported) Scheduled PRN Albuterol Sulf (Albuterol Sulfate) 2.5 Mg/3 Ml Vial.neb, 1 VIAL NEB Q4HP PRN for wheezing, (Reported) Quetiapine Fumarate (Quetiapine Fumarate) 25 Mg Tablet, 12.5 MG PO QHS PRN for AGITATION Allergies Coded Allergies: buprenorphine (Verified Allergy, Severe, 06/09/20) Current Medications Current Medications Medications (Trade) Dose Ordered Sig/K[place]by Route PRN Reason Start Time Stop Time Status Last Admin Dose Admin Acetaminophen (Tylenol Tab) 650 mg Q4H PRN PO PAIN OR FEVER 06/09/20 22:00 06/13/20 13:54 DC Albuterol Sulfate (Proventil Neb) 2.5 mg Q4HP PRN NEB wheezing 06/09/20 22:15 06/13/20 13:54 DC 06/10/20 15:08 Amlodipine Besylate (Norvasc) 5 mg DAILY PO 06/09/20 23:00 06/12/20 14:13 DC 06/12/20 08:39 Amlodipine Besylate (Norvasc) 10 mg DAILY PO 06/13/20 09:00 06/13/20 13:54 DC 06/13/20 08:38 Amoxicillin/ Clavulanate Potassium (Augmentin) 875 mg BID PO 06/09/20 22:15 06/11/20 18:00 DC 06/11/20 08:34 Apixaban (Eliquis) 5 mg BID PO 06/09/20 21:00 06/13/20 13:54 DC 06/13/20 08:37 Dextrose (Dextrose 50%) 25 ml ASDIRECTED PRN IV SEE LABEL COMMENTS 06/09/20 22:00 06/13/20 13:54 DC Docusate Sodium (Colace) 200 mg QHS PO 06/10/20 21:00 06/13/20 13:54 DC 06/12/20 21:38 Doxycycline Hyclate (Vibramycin) 100 mg BID PO 06/09/20 22:15 06/11/20 18:00 DC 06/11/20 08:33 Escitalopram Oxalate (Lexapro) 10 mg QHS PO 06/10/20 21:00 06/13/20 13:54 DC 06/12/20 21:39 Glucagon (Glucagon) 1 mg ASDIRECTED PRN SC SEE LABEL COMMENTS 06/09/20 22:00 06/13/20 13:54 DC Glucose (Glucose) 16 GM ASDIRECTED PRN PO SEE LABEL COMMENTS 06/09/20 22:00 06/13/20 13:54 DC Home Med (Med Rec Complete!) ASDIRECTED XX 06/09/20 22:00 06/09/20 22:02 DC Hydralazine HCl (Apresoline) 5 mg Q6HP PRN IV SBP>175 06/09/20 23:00 06/13/20 13:54 DC 06/11/20 04:48 Insulin Human Lispro (HumaLOG INSULIN) SEE PROTOCOL TABLE AC SC 06/10/20 07:30 06/13/20 13:54 DC 06/13/20 12:17 Insulin Human Lispro (HumaLOG INSULIN) SEE PROTOCOL TABLE QHS SC 06/09/20 21:00 06/13/20 13:54 DC 06/11/20 20:05 Labetalol HCl (Normodyne, Trandate) 10 mg STAT STAT IV 06/09/20 18:32 06/09/20 18:33 DC 06/09/20 19:06 Labetalol HCl (Normodyne, Trandate) 20 mg STAT STAT IV 06/09/20 19:58 06/09/20 19:59 DC 06/09/20 20:25 Lisinopril (Prinivil) 10 mg DAILY PO 06/10/20 09:00 06/10/20 07:56 DC 06/10/20 07:53 Lisinopril (Prinivil) 20 mg DAILY PO 06/10/20 09:00 Cancel Lisinopril (Prinivil) 20 mg DAILY PO 06/11/20 09:00 06/13/20 13:54 DC 06/13/20 08:38 Pantoprazole Sodium (Protonix) 40 mg DAILY PO 06/10/20 09:00 06/13/20 13:54 DC 06/13/20 08:37 Quetiapine Fumarate (SEROquel) 12.5 mg QHS PRN PO AGITATION 06/10/20 18:15 06/13/20 13:54 DC Rosuvastatin Calcium (Crestor) 20 mg QHS PO 06/10/20 21:00 06/13/20 13:54 DC 06/12/20 21:38 Salmeterol Xinafoate/ Fluticasone (Advair Hfa 230/ 21) 2 puff BID INH 06/10/20 09:00 06/13/20 13:54 DC 06/13/20 10:59 Sodium Chloride (Saline Lock Flush) 2 ml ASDIRECTED PRN IV SEE LABEL COMMENTS 06/10/20 15:45 06/13/20 13:54 DC Sodium Chloride (Saline Lock Flush) 2 ml SLF IV 06/10/20 22:00 06/13/20 13:54 DC 06/13/20 05:56 Tamsulosin HCl (Flomax) 0.4 mg QHS PO 06/10/20 21:00 06/13/20 13:54 DC 06/12/20 21:39 Zina Byrne MD Jun 13, 2020 18:38
--- NOTE | 2020-06-14 07:29 | ECHO ---
DATE OF PROCEDURE: 06/10/2020 Height: 170 cm Weight: 97 kg. REFERRING PHYSICIAN: Dr. Adams INDICATION: Hypertensive urgency. MEASUREMENTS: IV 1.3 LV 5.0 LVPW 1.4 LA 4.5 Aorta 3.9 Ascending aorta 3.9 RV 2.9 IVC 1.7 Mitral E wave velocity 69, A wave 55 E prime septal 8.2 E prime lateral 8.6 FINDINGS: The study is of acceptable quality. The patient is in sinus rhythm. Left ventricle is normal size and has preserved systolic function. Estimated left ventricular ejection fraction (LVEF) 65 to 70%. Mild left ventricular hypertrophy (LVH) is present. Right ventricle appears normal. Left atrium is moderately enlarged. The right atrium appears grossly normal. Aortic valve is sclerotic, but mobility is preserved. Mitral, tricuspid and pulmonic valves appear normal. There is epicardial fat pad and trivial amount of effusion present. Inferior vena cava is normal size. Aortic root and visualized segment of ascending aorta are borderline dilated at 3.9 cm. Aortic arch and abdominal aorta appear grossly normal based on limited views. Doppler interrogation of aortic valve reveals no significant stenosis or insufficiency, same applies for mitral valve. There is mild tricuspid insufficiency. Calculated pulmonary artery pressure is in 30s corresponding to mild pulmonary hypertension. Pulmonic valve is functionally competent. Mitral inflow pattern and tissue Doppler imaging of mitral annulus reveal grade 2 diastolic dysfunction. CONCLUSIONS: 1. Study is of acceptable technical quality. The patient is in sinus rhythm. 2. Normal LV size with mild left ventricular hypertrophy (LVH) and hyperdynamic LV systolic function, and grade 2 diastolic dysfunction 3. No hemodynamically significant valvular disease. 4. Likely normal central venous pressure and mild pulmonary hypertension 5. Borderline dilated aortic root and ascending aorta (3.9 cm each). 6. Trivial pericardial effusion and pericardial fat pad. [facility]
--- NOTE | 2020-06-21 16:43 | REP ---
CHEST X-RAY: PORTABLE EXAM SINGLE VIEW HISTORY: Chest pain. COMPARISON: Chest x-ray 06/09/2020. FINDINGS: Moderate cardiac enlargement is again noted. The aorta is tortuous as before. Pulmonary vasculature is cephalized. There is no evidence of pleural effusion, infiltrate, or pulmonary edema. [facility]TDD
== END 2020-06-13 13:02 | disposition home health service (06) | DRG 884 ==
LOC: M ED 17:41 → M ED INP 21:30 → ENRESERV 21:56 → M ICU 23:02 → M PCU 06-10 13:50
PROVIDERS: ADMIT Internal Medicine; ATTEND Internal Medicine
DX: F03.90 Unspecified dementia, unspecified severity, without behavioral disturbance, psychotic disturbance, mood disturbance, and anxiety (principal); I16.0 Hypertensive urgency; E11.9 Type 2 diabetes mellitus without complications; J44.9 Chronic obstructive pulmonary disease, unspecified; R29.6 Repeated falls; I25.10 Atherosclerotic heart disease of native coronary artery without angina pectoris; Z95.2 Presence of prosthetic heart valve; N40.0 Benign prostatic hyperplasia without lower urinary tract symptoms; R13.10 Dysphagia, unspecified; Z79.01 Long term (current) use of anticoagulants; Z86.718 Personal history of other venous thrombosis and embolism; Z79.899 Other long term (current) drug therapy

== ENCOUNTER 2021-04-27 15:05 | Inpatient (IN) | payer MEDICARE ==
[~2021-04-27] VITALS: Ht 175.3 cm; Wt 81.8 kg
[~2021-04-27 15:05] MED LIST changes: +ALBU83IN NEB; +AMLO1TAB25 PO; +AMOX875T2 PO; +BREO1INH3 INH; +D31000TA2 PO; +DOCU100C16 PO; +DOXY100C PO; +ELIQ5TAB PO; +ESCI10TA16 PO; +FLOM0.4C39 PO; +GLIP5TAB20 PO; +JANU50TA4 PO; +LISI10TA22 PO; +LISI20TA33 PO; +LORA-674 PO; +QUET25TA3 PO; +ROSU20TA5 PO
[2021-04-27] MEDS ORDERED: PANT20TA6 PO (16:12)
--- NOTE | 2021-04-27 18:01 | REP ---
INDICATION: Wheezing. COMPARISON: 06/09/2020 and 06/10/2020. TECHNIQUE: Portable AP chest with the patient supine. FINDINGS: The lung frank are clear. Cardiac size is moderately enlarged, unchanged. The wilber, mediastinum, and skeletal structures are unremarkable. IMPRESSION: Moderate chronic cardiomegaly. Lung frank are clear. <Electronically signed by Marbin Caro > 04/27/21 [id number]
[2021-04-27 18:22] LABS: BASO % 0.3 % (0.0-1.0); HEMATOCRIT 40.2 % (42.0-52.0); HEMOGLOBIN 12.8 g/dl (13.5-17.5); LYMPH # 0.6 10^3/uL (1.5-5.0); LYMPH % 16.3 % (24.0-44.0); MEAN CORPUSCULAR HEMOGLOBIN 30.3 pg (27.0-33.0); MEAN CORPUSCULAR HGB CONC 31.8 g/dl (32.0-36.5); MONO # 0.4 10^3/uL (0.0-0.8); MONO % 11.8 % (2.0-8.0); NEUTROPHILS # 2.4 10^3/uL (1.5-8.5); PLATELET COUNT, AUTOMATED 133 10^3/uL (150-450); RED BLOOD COUNT 4.23 10^6/uL (4.30-6.10); WHITE BLOOD COUNT 3.4 10^3/uL (4.0-10.0)
[2021-04-27 19:01] LABS: BILIRUBIN,TOTAL 0.4 MG/DL (0.2-1.0); C REACTIVE PROTEIN QUANTITATIV 3.54 MG/DL (0.00-0.30); CALCIUM LEVEL 7.6 MG/DL (8.8-10.2); CREATININE FOR GFR 2.6 MG/DL (0.70-1.30); GLOMERULAR FILTRATION RATE 25.3 (>35); MAGNESIUM LEVEL 2.7 MG/DL (1.8-2.4); MB/CK RELATIVE INDEX 0.66 (< OR =4); POTASSIUM SERUM 5.4 MEQ/L (3.5-5.1); TOTAL PROTEIN 6.1 GM/DL (6.4-8.2); TROPONIN I 0.46 NG/ML (< 0.10)
[2021-04-27 20:39] LABS: CK-MB VALUE MASS 7.9 NG/ML (<3.6); MB/CK RELATIVE INDEX 0.53 (< OR =4); TROPONIN I 0.39 NG/ML (< 0.10)
[2021-04-27] MEDS ORDERED: LEXA1TAB PO (21:34)
[2021-04-27] MEDS ORDERED: MED REC COMMENT (21:58)
[2021-04-27] MEDS ORDERED: HOME MED LIST COMPLETE! XX SCH (22:00)
[2021-04-27 23:14] LABS: RSV AMPLIFICATION NEGATIVE (NEGATIVE)
[2021-04-28] MEDS ORDERED: ACETAMINOPHEN 500 MG TAB PO ONE (00:05)
--- NOTE | 2021-04-28 00:39 | REPVR ---
PROCEDURE INFORMATION: Exam: CT Head Without Contrast Exam date and time: 04/27/2021 11:41 PM Age: 80 years old Clinical indication: Other: Unequal pupils TECHNIQUE: Imaging protocol: Computed tomography of the head without contrast. Radiation optimization: All CT scans at this facility use at least one of these dose optimization techniques: automated exposure control; mA and/or kV adjustment per patient size (includes targeted exams where dose is matched to clinical indication); or iterative reconstruction. Other technique: STROKE PROTOCOL was implemented. COMPARISON: CT Head without contrast 06/09/2020 6:00 PM FINDINGS: Brain: Decreased attenuation of the supratentorial white matter is likely secondary to chronic microvascular ischemia. No acute intracranial hemorrhage. 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 Cerebral ventricles: Ventricular and subarachnoid spaces are age appropriate. Paranasal sinuses: Mild paranasal sinus disease. Mastoid air cells: There is partial opacification of the mastoid air cells greater on the right. Vasculature: Intracranial vascular calcification. Bones/joints: Unremarkable. No acute fracture. Soft tissues: Unremarkable. IMPRESSION: No acute intracranial abnormality. ASSESSMENT: ASPECTS ([place] Stroke Program Early CT Score) is 10. Electronically signed by: Malick Rice On 04/28/2021 00:38:34 AM
[2021-04-28] MEDS ORDERED: ALBUTEROL SULFATE 2.5 MG/0.5 ML INH NEB SOLN NEB PRN (01:00)
[2021-04-28] MEDS ORDERED: MAALOX 30 ML SUSP *UDC PO PRN (01:00)
[2021-04-28] MEDS ORDERED: MOM 30ML SUSPENSION UDC PO PRN (01:00)
[2021-04-28] MEDS ORDERED: ACETAMINOPHEN TAB 650MG DOSE (2X325MG) PO PRN (01:00)
--- NOTE | 2021-04-28 01:09 | HPEPDOC ---
[facility] Medical History & Physical Date of Admission Apr 28, 2021 Date of Service: Apr 28, 2021 History and Physical CHIEF COMPLAINT: falling, deconditioning HISTORY OF PRESENT ILLNESS: 80-year-old male with a past medical history of dementia, coronary artery disease status post 3 stents, DVT, BPH, COPD, DM 2, DVT, was brought to the ER by his after he developed worsening confusion, weakness and near falls. Patient was diagnosed with covid-19 infection 3 days ago. At the time of evaluation, the patient appears very confused and is unable to provide history. Unfortunately was unable to reach the patient's , as she had left the ER and was not answering the telephone. Found to be in acute renal failure with a Cr 2.60, BUN 58, and elevated CK 1500. Suspect rhabdomyolysis 2/2 falls. Further, found to have elevated trop to 0.46, with downtrend to 0.39, and EKG showing T wave inversions in leads V2-V4. patient did not complain of chest pain. Patient will be admitted to hospitalist service for management of en cephalopathy and acute renal failure. PAST MEDICAL HISTORY: CAD s/p stents x3 >10 years ago Hx of LLE DVT, previously on eliquis, per , now on xarelto possible watchmen device x3 years with recent removal? BPH COPD Hx of pericardial effusion T2DM PAST SURGICAL HISTORY: cholecystectomy umbilical hernia repair inguinal hernia repair leg cyst removal Cataract surgery with residual complication, pupillary constriction SOCIAL HISTORY: Lives with his who is his primary family member caretaker (HCP, PoA). Prior 30 pack year history, no EtoH or illicit drug use. FAMILY HISTORY: Father: from CHF apparently Mother: from a heart attack, is unsure. ALLERGIES: Please see below. REVIEW OF SYSTEMS: 10 point ROS conducted, or other findings are noted in the HPI HOME MEDICATIONS: Please see below. PHYSICAL EXAMINATION: VITAL SIGNS: General: NAD, comfortable HEENT: PERRLA, EOMI, sclerae clear. L pupil pinpoint (per , present for several years) Neck: supple, normal ROM, no JVD Resp: lungs CTAB, no wheeze, no rales, no crackles CVS: RRR, normal S1, S2, no murmurs Abdo: soft, no masses, no hepatosplenomegaly, BS+, no rebound tenderness Extremities: no edema , pulses 2+ MSK: no joint deformities, normal ROM Neuro: no focal neuro deficits, moving all 4 extremities Psych: calm, cooperative, AAO x 3 LABORATORY DATA: See below. IMAGING: CT head wo contrast (04/28/21): IMPRESSION: No acute intracranial abnormality. CXR (04/27/21): IMPRESSION: Moderate chronic cardiomegaly. Lung frank are clear. MICROBIOLOGY: Please see below. ASSESSMENT: . . PLAN: # AMS with near falls, debility, complicated by COVID-19 infection - suspect falls. CT head wo acute changes - supportive care - tylenol prn for fevers - not a candidate for remdesivir/steroids as saturating at 97% on RA. - d dimer elevated ~890 - will check inflammatory marker panel in am. - no focal consolidation seen on CXR. Procal 0.26 - will defer antibiotics at this time. #ELIA likely 2/2 urinary retention/BPH vs dehydration/rhabdomyolysis - suspect has been down after a fall? - poor historian, unable to reach family for clarification - did not receive fluids in ER - UA positive for microscopic hematuria, 2+ protein. Mild wbc, without additional signs of infection. - ordered 1L NS bolus - c/w NS 100 cc/hr - check renal US #Elevated Trop - ER d/w Dr. Corrales. Likely type 2 AL, in setting of ELIA - does not believe to be NSTEMI. EKG showing t wave inversion in leads V2-V4 - no recommendation for transfer or AC. - given patients acute renal failure, angiography with contrast would likely worsen the acute renal failure - ordered ASA 325 mg once - takes rosuvastatin 20 mg qhs - Trop 0.46, 0.39, 0.43 - patient developed chest pain at ~0300. - at this stage concern for NSTEMI. - started patient on heparin ggt - spoke to patient's at [phone], confirmed FULL CODE status and wish for transfer to facility with PCI capabilities - I spoke to [place], [place] facilities, which unfortunately had no capacity - I spoke to transfer center at [facility], Dr. Rey, who has accepted the patient for transfer, for suspected NSTEMI. Their help is greatly appreciated. #Hx of diastolic CHF - at present appears to be volume depleted - will c/w IVF for treatment of ELIA/rhabdomyolysis. #Hx of DVT - previously on eliquis - I confirmed with patient's , was switched to xarelto, but she is unable to confirm accurate dose, stated possibly 10 mg daily - at this stage, on heparin ggt for NSTEMI. #Hx of dementia - at present calm, may require sitter if sundowns #CAD -Continue rosuvastatin # T2DM -Sliding scale insulin, ISS AC and HS -Consistent carb diet - hypoglycemic precautions #Depression -Continue Lexapro # COPD -Continue albuterol nebs, -Home ICS/LABA converted to symbicort while inpatient DVT prophylaxis: teds, SCDs, heparin GGT CODE STATUS: FULL CODE Vital Signs Vital Signs Date Time Temp Pulse Resp B/P (MAP) Pulse Ox O2 Delivery O2 Flow Rate FiO2 04/27/21 22:16 73 97 04/27/21 22:07 101.1 21 144/82 (102) Room Air Laboratory Data Labs 24H Laboratory Tests 2 04/27/21 16:02: Urine Color YELLOW, Urine Appearance HAZY, Urine pH 5.0, Urine Specific [place] 1.018, Urine Protein 2+H, Urine Glucose (UA) NEGATIVE, Urine Ketones NEGATIVE, Urine Blood 1+H, Urine Nitrite NEGATIVE, Urine Bilirubin NEGATIVE, Urine Urobilinogen 0.2, Urine Leukocyte Esterase NEGATIVE, Urine WBC (Auto) 8H, Urine RBC (Auto) 1, Urine Hyaline Casts (Auto) 0, Urine Bacteria (Auto) NEGATIVE, Urine Squamous Epithelial Cells 0, Urine Mucus (Auto) SMALL, Urine Sperm (Auto) 04/27/21 17:32: Immature Granulocyte % (Auto) 0.6, Neutrophils (%) (Auto) 71.0H, Lymphocytes (%) (Auto) 16.3L, Monocytes (%) (Auto) 11.8H, Eosinophils (%) (Auto) 0.0, Basophils (%) (Auto) 0.3, Neutrophils # (Auto) 2.4, Lymphocytes # (Auto) 0.6L, Monocytes # (Auto) 0.4, Eosinophils # (Auto) 0.0, Basophils # (Auto) 0.0, Nucleated Red Blood Cells % (auto) 0.0, Anion Gap 6L, Glomerular Filtration Rate 25.3L, Lactic Acid Level 1.2, Calcium Level 7.6L, Magnesium Level 2.7H, Total Bilirubin 0.4, Aspartate Amino Transf (AST/SGOT) 109H, Alanine Aminotransferase (ALT/SGPT) 91H, Alkaline Phosphatase 64, Total Creatine Kinase 1509H, Creatine Kinase MB 10.0H, Creatine Kinase MB Relative Index 0.66, Troponin I 0.46H, C-Reactive Protein, Quantitative 3.54H, Total Protein 6.1L, Albumin 3.0L, Albumin/Globulin Ratio 1.0, Procalcitonin 0.26 04/27/21 19:54: Total Creatine Kinase 1495H, Creatine Kinase MB 7.9H, Creatine Kinase MB Relative Index 0.53, Troponin I 0.39H, D-Dimer, Quantitative 887.79H 04/27/21 22:04: Bedside Glucose (Misc Panel) 159H 04/27/21 22:19: Coronavirus (COVID-19)(PCR) POSITIVEA, Influenza Type A (RT-PCR) NEGATIVE, Influenza Type B (RT-PCR) NEGATIVE, Respiratory Syncytial Virus (PCR) NEGATIVE CBC/BMP Laboratory Tests 04/27/21 17:32 Microbiology Microbiology 04/28/21 Blood Culture, Received Pending 04/28/21 Blood Culture, Received Pending Home Medications Scheduled Cholecalciferol (Vitamin D3) (Vitamin D3) 1,000 Unit Tablet, 2,000 UNITS PO DAILY Docusate Sodium (Docusate Sodium) 100 Mg Capsule, 200 MG PO QHS Escitalopram Oxalate (Lexapro) 10 Mg Tablet, 10 MG PO QHS Fluticasone/Vilanterol (Breo Ellipta 200-25 Mcg INH) 1 Each Blst.w.dev, 1 PUFF INH DAILY Glipizide (Glipizide ER) 5 Mg Tab.er.24, 5 MG PO DAILY Loratadine (Loratadine) 10 Mg Tablet, 10 MG PO DAILY Pantoprazole Sodium (Pantoprazole Sodium) 20 Mg Tablet.dr, 20 MG PO DAILY Rosuvastatin Calcium (Rosuvastatin Calcium) 20 Mg Tablet, 20 MG PO QHS Sitagliptin Phos/Metformin HCl (Janumet 50-500 mg Tablet) 1 Each Tablet, 1 TAB PO BID Tamsulosin HCl (Flomax) 0.4 Mg Capsule, 0.8 MG PO QHS Scheduled PRN Albuterol Sulf (Albuterol Sulfate) 2.5 Mg/3 Ml Vial.neb, 1 VIAL NEB Q4HP PRN for wheezing Miscellaneous Medications [Med Rec Comment] UNABLE TO SPEAK WITH PT OR CAREGIVER, USED EXTERNAL MED HISTORY FOR MED REC Allergies Coded Allergies: buprenorphine (Verified Allergy, Severe, 06/09/20) CHEIKH LENNON MD Apr 28, 2021 01:09
[2021-04-28] MEDS ORDERED: NS 1,000 ML IV ONE (02:10)
[2021-04-28] MEDS ORDERED: ASPIRIN 325 MG TAB PO ONE (02:15)
[2021-04-28] MEDS ORDERED: DEXTROSE 50% 50 ML SYRINGE IV PRN (02:20)
[2021-04-28] MEDS ORDERED: NS 1,000 ML IV SCH (02:20)
[2021-04-28] MEDS ORDERED: GLUCAGON INJ 1MG VIAL SC PRN (02:20)
[2021-04-28] MEDS ORDERED: GLUCOSE 4GM CHEW TABLET PO PRN (02:20)
[2021-04-28 04:35] VITALS: BP 174/78
[2021-04-28 05:15] VITALS: BP 147/71
[2021-04-28] MEDS ORDERED: HEPARIN SOD (PORCINE) 5000UNITS/ML 1ML VIAL/SYRINGE IV PRN (05:15)
[2021-04-28] MEDS ORDERED: HEPARIN DRIP 25,000 UNITS in IV 1 EA IV SCH (05:15)
--- NOTE | 2021-04-28 05:57 | DS.PDOC ---
Discharge Summary General Date of Admission Apr 28, 2021 at 01:00 Date of Discharge 04/28/21 Discharge Summary PROCEDURES PERFORMED DURING STAY: [None]. ADMITTING DIAGNOSES: COVID-19 infection Encephalopathy Troponin elevation Acute kidney failure Rhabdomyolysis Hx of CAD Hx of dementia Hx COPD Hx depression Hx diastolic CHF DISCHARGE DIAGNOSES: NSTEMI COVID-19 infection Encephalopathy Acute kidney failure Rhabdomyolysis Hx of CAD Hx of dementia Hx COPD Hx depression Hx diastolic CHF COMPLICATIONS/CHIEF COMPLAINT: Acute Urinary Retention,Ams,Pneumonia Due To Covid. HISTORY OF PRESENT ILLNESS: 80-year-old male with a past medical history of dementia, coronary artery disease status post 3 stents, DVT, BPH, COPD, DM 2, DVT, was brought to the ER by his after he developed worsening confusion, weakness and near falls. Patient was diagnosed with covid-19 infection 3 days ago. At the time of evaluation, the patient appears very confused and is unable to provide history. Unfortunately was unable to reach the patient's , as she had left the ER and was not answering the telephone. Per report, patient has been feeling more fatigue, confused and had been falling more frequently since diagnosis of covid-19. Found to be in acute renal failure with a Cr 2.60, BUN 58, and elevated CK 1500. Suspect rhabdomyolysis 2/2 falls. Further, found to have elevated trop to 0.46, with downtrend to 0.39, and EKG showing T wave inversions in leads V2-V4. patient did not complain of chest pain. ER discussed case with cardiology foot and ankle surgeon, Dr. Corrales. Thought obe type 2 RI, in setting of acute kidney failure, rhabdomyolysis and covid-19 infection, as well as absence of chest pain. Patient will be admitted to hospitalist service for management of encephalopathy and acute renal failure. HOSPITAL COURSE: # AMS with near falls, debility, complicated by COVID-19 infection - suspect falls. CT head wo acute changes - supportive care - tylenol prn for fevers - not a candidate for remdesivir/steroids as saturating at 97% on RA. - d dimer elevated ~890 - will check inflammatory marker panel in am. - no focal consolidation seen on CXR. Procal 0.26 - will defer antibiotics at this time. #ELIA likely 2/2 urinary retention/BPH vs dehydration/rhabdomyolysis - suspect has been down after a fall? - poor historian, unable to reach family for clarification - did not receive fluids in ER - UA positive for microscopic hematuria, 2+ protein. Mild wbc, without additional signs of infection. - ordered 1L NS bolus - c/w NS 100 cc/hr - check renal US #Elevated Trop - ER d/w Dr. Corrales. Likely type 2 RI, in setting of ELIA - does not believe to be NSTEMI. EKG showing t wave inversion in leads V2-V4 - no recommendation for transfer or AC. - given patients acute renal failure, angiography with contrast would likely worsen the acute renal failure - ordered ASA 325 mg once - takes rosuvastatin 20 mg qhs - Trop 0.46, 0.39, 0.43 - patient developed chest pain at ~0300. - at this stage concern for NSTEMI. - started patient on heparin ggt - spoke to patient's at [phone], confirmed FULL CODE status and wish for transfer to facility with PCI capabilities - I spoke to [place], [place] facilities, which unfortunately had no capacity - I spoke to transfer center at [facility], Dr. Rey, who has accepted the patient for transfer, for suspected NSTEMI. Their help is greatly appreciated. #Hx of diastolic CHF - at present appears to be volume depleted - will c/w IVF for treatment of ELIA/rhabdomyolysis. #Hx of DVT - previously on eliquis - I confirmed with patient's , was switched to xarelto, but she is unable to confirm accurate dose, stated possibly 10 mg daily - at this stage, on heparin ggt for NSTEMI. #Hx of dementia - at present calm, may require sitter if sundowns #CAD -Continue rosuvastatin # T2DM -Sliding scale insulin, ISS AC and HS -Consistent carb diet - hypoglycemic precautions #Depression -Continue Lexapro # COPD -Continue albuterol nebs, -Home ICS/LABA converted to symbicort while inpatient DISCHARGE MEDICATIONS: Please see below. ALLERGIES: Please see below. PHYSICAL EXAMINATION ON DISCHARGE: VITAL SIGNS: Please see below. General: NAD, comfortable HEENT: PERRLA, EOMI, sclerae clear. L pupil pinpoint (per , present for several years) Neck: supple, normal ROM, no JVD Resp: lungs CTAB, no wheeze, no rales, no crackles CVS: RRR, normal S1, S2, no murmurs Abdo: soft, no masses, no hepatosplenomegaly, BS+, no rebound tenderness Extremities: no edema , pulses 2+ MSK: no joint deformities, normal ROM Neuro: no focal neuro deficits, moving all 4 extremities Psych: calm, cooperative, AAO x 3 LABORATORY DATA: See below. LABORATORY DATA: Please see below. IMAGING: CT head wo contrast (04/28/21): IMPRESSION: No acute intracranial abnormality. CXR (04/27/21): IMPRESSION: Moderate chronic cardiomegaly. Lung frank are clear. PROGNOSIS: fair ACTIVITY: bed rest DIET: NPO for now DISCHARGE PLAN: transfer to [facility], evaluation for possible angiography. Patient will be transfered with heparin infusion, as well as IV moprhine, O2 en route. DISPOSITION: [facility] [place] CONDITION: [Stable]. TIME SPENT ON DISCHARGE: 35 minutes Vital Signs/I&Os Vital Signs Date Time Temp Pulse Resp B/P (MAP) Pulse Ox O2 Delivery O2 Flow Rate FiO2 04/28/21 05:15 62 20 147/71 (96) 97 Nasal Cannula 2.0 04/28/21 04:35 99.5 I&O- Last 24 Hours up to 6 AM 04/28/21 05:59 Intake Total 500 ml Output Total 1850 ml Balance -1350 ml Laboratory Data Labs 24H Laboratory Tests 2 04/27/21 16:02: Urine Color YELLOW, Urine Appearance HAZY, Urine pH 5.0, Urine Specific [place] 1.018, Urine Protein 2+H, Urine Glucose (UA) NEGATIVE, Urine Ketones NEGATIVE, Urine Blood 1+H, Urine Nitrite NEGATIVE, Urine Bilirubin NEGATIVE, Urine Urobilinogen 0.2, Urine Leukocyte Esterase NEGATIVE, Urine WBC (Auto) 8H, Urine RBC (Auto) 1, Urine Hyaline Casts (Auto) 0, Urine Bacteria (Auto) NEGATIVE, Urine Squamous Epithelial Cells 0, Urine Mucus (Auto) SMALL, Urine Sperm (Auto) 04/27/21 17:32: Immature Granulocyte % (Auto) 0.6, Neutrophils (%) (Auto) 71.0H, Lymphocytes (%) (Auto) 16.3L, Monocytes (%) (Auto) 11.8H, Eosinophils (%) (Auto) 0.0, Basophils (%) (Auto) 0.3, Neutrophils # (Auto) 2.4, Lymphocytes # (Auto) 0.6L, Monocytes # (Auto) 0.4, Eosinophils # (Auto) 0.0, Basophils # (Auto) 0.0, Nucleated Red Blood Cells % (auto) 0.0, Anion Gap 6L, Glomerular Filtration Rate 25.3L, Lactic Acid Level 1.2, Calcium Level 7.6L, Magnesium Level 2.7H, Total Bilirubin 0.4, Aspartate Amino Transf (AST/SGOT) 109H, Alanine Aminotransferase (ALT/SGPT) 91H, Alkaline Phosphatase 64, Total Creatine Kinase 1509H, Creatine Kinase MB 10.0H, Creatine Kinase MB Relative Index 0.66, Troponin I 0.46H, C-Reactive Protein, Quantitative 3.54H, Total Protein 6.1L, Albumin 3.0L, Albumin/Globulin Ratio 1.0, Procalcitonin 0.26 04/27/21 19:54: Total Creatine Kinase 1495H, Creatine Kinase MB 7.9H, Creatine Kinase MB Relative Index 0.53, Troponin I 0.39H, D-Dimer, Quantitative 887.79H 04/27/21 22:04: Bedside Glucose (Misc Panel) 159H 04/27/21 22:19: Coronavirus (COVID-19)(PCR) POSITIVEA, Influenza Type A (RT-PCR) NEGATIVE, Influenza Type B (RT-PCR) NEGATIVE, Respiratory Syncytial Virus (PCR) NEGATIVE 04/28/21 02:02: Troponin I 0.43H CBC/BMP Laboratory Tests 04/27/21 17:32 FSBS Laboratory Tests Test 04/27/21 22:04 Range/Units Bedside Glucose (Misc Panel) 159 83-110 MG/DL Microbiology Microbiology 04/28/21 Blood Culture, Received Pending 04/28/21 Blood Culture, Received Pending Discharge Medications Scheduled Cholecalciferol (Vitamin D3) (Vitamin D3) 1,000 Unit Tablet, 2,000 UNITS PO DAILY, (Reported) Docusate Sodium (Docusate Sodium) 100 Mg Capsule, 200 MG PO QHS, (Reported) Escitalopram Oxalate (Lexapro) 10 Mg Tablet, 10 MG PO QHS, (Reported) Fluticasone/Vilanterol (Breo Ellipta 200-25 Mcg INH) 1 Each Blst.w.dev, 1 PUFF INH DAILY, (Reported) Glipizide (Glipizide ER) 5 Mg Tab.er.24, 5 MG PO DAILY, (Reported) Loratadine (Loratadine) 10 Mg Tablet, 10 MG PO DAILY, (Reported) Pantoprazole Sodium (Pantoprazole Sodium) 20 Mg Tablet.dr, 20 MG PO DAILY, (Reported) Rosuvastatin Calcium (Rosuvastatin Calcium) 20 Mg Tablet, 20 MG PO QHS, (Reported) Sitagliptin Phos/Metformin HCl (Janumet 50-500 mg Tablet) 1 Each Tablet, 1 TAB PO BID, (Reported) Tamsulosin HCl (Flomax) 0.4 Mg Capsule, 0.8 MG PO QHS, (Reported) Scheduled PRN Albuterol Sulf (Albuterol Sulfate) 2.5 Mg/3 Ml Vial.neb, 1 VIAL NEB Q4HP PRN for wheezing, (Reported) Miscellaneous Medications [Med Rec Comment] , (Reported) UNABLE TO SPEAK WITH PT OR CAREGIVER, USED EXTERNAL MED HISTORY FOR MED REC Allergies Coded Allergies: buprenorphine (Verified Allergy, Severe, 06/09/20) CHEIKH LENNON MD Apr 28, 2021 05:57
[2021-04-28] MEDS ORDERED: HEPARIN SOD (PORCINE) 5000UNITS/ML 1ML VIAL/SYRINGE SC SCH (06:00)
[2021-04-28] MEDS ORDERED: IPRATROPIUM 0.5MG/ALBUTEROL 2.5MG INH SOL UD 3ML (DUONEB) NEB ONE (06:00)
[2021-04-28] MEDS ORDERED: METOPROLOL TART 12.5 MG PER 1/2 TAB PO SCH (06:05)
[2021-04-28] MEDS ORDERED: NITROGLYCERIN 0.4 MG SUBL TABLET SL PRN (06:05)
[2021-04-28 07:10] LABS: INR 1.14
[2021-04-28 07:11] LABS: PARTIAL THROMBOPLASTIN TIME 41.6 SECONDS (25.9-37.0)
[2021-04-28 07:13] LABS: D-DIMER QUANT 734.04 ng/ml (<500)
[2021-04-28 07:29] VITALS: BP 142/65
[2021-04-28] MEDS ORDERED: HumaLOG INSULIN (NovoLOG) PER UNIT SC SCH ×2 (07:30→21:00)
[2021-04-28 07:36] LABS: TROPONIN I 0.31 NG/ML (< 0.10)
--- NOTE | 2021-04-28 07:50 | ECGEPIP ---
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
[2021-04-28 08:00] VITALS: BP 142/65
[2021-04-28] MEDS ORDERED: SYMBICORT 160/4.5MCG INHALER 6GM INH SCH (08:00)
[2021-04-28] MEDS ORDERED: LORATADINE 10 MG TAB PO SCH (09:00)
[2021-04-28] MEDS ORDERED: VITAMIN D 1,000 INTERNATIONAL UNITS TABLET PO SCH (09:00)
[2021-04-28] MEDS ORDERED: PANTOPRAZOLE 20 MG TAB PO SCH (09:00)
[2021-04-28] MEDS ORDERED: DOCUSATE SODIUM 100MG CAPSULE PO SCH ×2 (09:00→21:00)
--- NOTE | 2021-04-28 16:36 | ECGEPIP ---
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
[2021-04-28] MEDS ORDERED: TAMSULOSIN 0.4 MG CAP PO SCH (21:00)
[2021-04-28] MEDS ORDERED: ROSUVASTATIN 10 MG TAB (CRESTOR) PO SCH (21:00)
[2021-04-28] MEDS ORDERED: ESCITALOPRAM OXALATE 10 MG TAB (LEXAPRO) PO SCH (21:00)
== END 2021-04-28 09:48 | disposition other institution (70) | DRG 280 ==
LOC: M ED 15:05 → M ED INP 04-28 01:00 → M 4MAIN 04-28 04:25
PROVIDERS: ADMIT Family Medicine; ATTEND Family Medicine
DX: I21.4 Non-ST elevation (NSTEMI) myocardial infarction (principal); U07.1 COVID-19; N17.9 Acute kidney failure, unspecified; M62.82 Rhabdomyolysis; I50.32 Chronic diastolic (congestive) heart failure; G93.40 Encephalopathy, unspecified; F03.90 Unspecified dementia, unspecified severity, without behavioral disturbance, psychotic disturbance, mood disturbance, and anxiety; I25.10 Atherosclerotic heart disease of native coronary artery without angina pectoris; Z95.5 Presence of coronary angioplasty implant and graft; N40.1 Benign prostatic hyperplasia with lower urinary tract symptoms; J44.9 Chronic obstructive pulmonary disease, unspecified; E11.9 Type 2 diabetes mellitus without complications; Z86.718 Personal history of other venous thrombosis and embolism; Z79.01 Long term (current) use of anticoagulants; Z98.49 Cataract extraction status, unspecified eye; Z87.891 Personal history of nicotine dependence; R77.8 Other specified abnormalities of plasma proteins; F32.9 Major depressive disorder, single episode, unspecified; Z79.899 Other long term (current) drug therapy; Z20.822 Contact with and (suspected) exposure to COVID-19; Z79.84 Long term (current) use of oral hypoglycemic drugs